=== PATIENT | female | born 1985 | race Two or more races ===

== ENCOUNTER 2022-01-16 21:37 | Emergency (ER) | payer BC ==
[~2022-01-16] VITALS: Ht 165.1 cm; Wt 62.1 kg
--- NOTE | 2022-01-16 22:05 | NUR ---
Dr ramirez at bedside, MSE in progress.
[2022-01-16 22:29] LABS: HEMATOCRIT 35.8 % (31.2-41.9); MEAN CORPUSCULAR HEMOGLOBIN 30.3 uug (24.7-32.8); MEAN CORPUSCULAR VOLUME 87.9 fL (75.5-95.3); PLATELET COUNT (AUTO) 216 K/uL (179-408)
[2022-01-16 22:40] LABS: BILIRUBIN,DIRECT 0.2 mg/dL (0.0-0.2); BILIRUBIN,TOTAL 0.5 mg/dL (0.2-1.0); CREATININE 0.6 mg/dL (0.6-1.3); POTASSIUM 3.9 mmol/L (3.5-5.1); TOTAL PROTEIN, SERUM 6.7 g/dL (6.4-8.2)
--- NOTE | 2022-01-16 22:50 | NUR ---
[facility]ANE FORBES FOR PELVIC US.
[2022-01-16] MEDS ORDERED: MORPHINE SULFATE 4 MG/1 ML DISP.SYRIN IM ONE (23:15)
[2022-01-16] MEDS ORDERED: MORPHINE SULFATE 4 MG/1 ML DISP.SYRIN ONE (23:29)
--- NOTE | 2022-01-17 01:31 | NUR ---
Patient discharged to home in stable condition. Written and verbal after care instructions given. Patient verbalizes understanding of instructions. Stressed follow up or return to ER for worsening s/s. pt ambulated wtih steady gait. denies pain. no SOB. no chest pain. AOx4
[2022-01-17 01:34] VITALS: BP 101/61
== END 2022-01-17 01:34 | disposition home or self-care (01) ==
LOC: ER 22:47
DX: O20.0 Threatened abortion (principal); Z3A.01 Less than 8 weeks gestation of pregnancy
CPT/HCPCS: 36415; 76856; 80048; 80076; 84702; 85025; 86850; 86900; 86901; 96372; 99284; J2270; A4663